=== PATIENT | female | born 1990 | race Two or more races ===

== ENCOUNTER 2024-05-28 12:26 | Inpatient (IN) | payer OTHER ==
[~2024-05-28] VITALS: Ht 160 cm; Wt 70.8 kg
--- NOTE | 2024-05-28 12:33 | NUR ---
PTE ALERTA Y ORIENTADA X3 REFEIRE HABERSE REALIZADO LABORATORIOS LOS CUALES REFLEJAN HEMOGLOBINA EN 6.9. SE MIDEN SV Y SE UBICA.
[2024-05-28] MEDS ORDERED: KETOROLAC TROMETHAMINE 60 MG VIAL IM STA (13:41)
--- NOTE | 2024-05-28 15:02 | NUR ---
PTE ALERTA Y ORIENTADA X3 ES EVALUADA POR EL DR. MARION. RN Ivana GARCIACLIVE MONROY, KALI MUESTRAS DE LAB Y ADMINISTRA MEDICAMENTO MICHELLE ORDEN MEDICA BAJO MEDIDAS ASEPTICAS. SE NOTIFICA SONOGRAMA PENDIENTE.
[2024-05-28 15:57] LABS: CREATININE SERUM 0.51 mg/dL (0.55-1.02); GFR 139.75; POTASSIUM 3.61 mEq/L (3.5-5.1)
[2024-05-28 15:58] VITALS: O2SAT 98
[2024-05-28 16:06] LABS: MEAN CORPUSCULAR HGB CONC 30.3 g/dl (32.0-36.0); PLATELET COUNT 359 K/uL (150-450); RED BLOOD COUNT 4.19 M/uL (4.00-6.00); RED CELL DISTRIBUTION WIDTH 19.5 % (11.5-14.5)
[2024-05-28 16:08] LABS: MEAN CORPUSCULAR HEMOGLOBIN 16.7 pg (27.00-32.0)
[2024-05-28 16:09] LABS: MEAN CELL VOLUME 54.9 fL (80.00-100.00)
[2024-05-28 19:57] LABS: PH,URINE 5.5 (5.0-8.0); URINE APPEARANCE Clear; URINE BILIRRUBIN Negative (NEGATIVE); URINE BLOOD Large; URINE COLOR Yellow; URINE GLUCOSE Negative (NEGATIVE); URINE KETONE Trace (NEGATIVE); URINE LEUKOCYTE Trace; URINE NITRATE Negative; URINE PROTEIN Trace (NEGATIVE)
[2024-05-28 19:58] LABS: URINE BACTERIA 76.8 uL (0.0-1933); URINE EPITHELIAL CELLS 7.7 uL (0.0-38.8); URINE WBC 45.2 uL (0.0-23.2)
[2024-05-28] MEDS ORDERED: ESTROGENS, CONJUGATED 25 MG in DEXTROSE 5 % IN WATER 50 ML IV SCH (20:01)
--- NOTE | 2024-05-28 21:40 | NUR ---
1949- SE ORIENTA A PACIENTE SOBRE PROCESO DE TRANSFUSION DE LESLIE, SE COLECTAN MUESTRAS DE LABORATORIO BAJO MEDIDAS ASEPTICAS PARA 3 UNIDADES DE PRBC, SE LLENA DOCUMENTO DE REQUISION, SE COLECTA MUESTRA DE TIPO Y BERT, SE LLEVAN AL LABORATORIO. SE PROVEE CONSENTIMIENTO PARA TRANSFUSION DE LESLIE,PACIENTE FIRMA DOCUMENTO Y SE ANEJA AL EXPENDIENTE. 2139- INDICA QUE BANCO DE [place]LIE CANCELO REQUISION REALIZADA. SE COLECTAN MUESTRAS DE LABORATORIOS PARA 3 UNIDADES DE PRBC Y SE LLENA REQUISION. SE LLEVAN MUESTRAS AL LABORATORIO Y SE ENTREGAN A .
[2024-05-29 01:00] VITALS: BP 99/64
[2024-05-29 08:42] VITALS: BP 121/80
[2024-05-29] MEDS ORDERED: ACETAMINOPHEN 500 MG GEL..CAP PO PRN (14:30)
[2024-05-29 16:00] VITALS: BP 120/80
[2024-05-29] MEDS ORDERED: ESTROGENS, CONJUGATED 25 MG in DEXTROSE 5 % IN WATER 50 ML IV SCH (17:00)
[2024-05-29] MEDS ORDERED: SIMETHICONE 125 MG CAPSULE PO SCH (17:00)
[2024-05-29 21:22] LABS: HEMATOCRIT 27.7 % (36.0-45.00); MEAN CORPUSCULAR HGB CONC 31.5 g/dl (32.0-36.0); PLATELET COUNT 345 K/uL (150-450); RED BLOOD COUNT 4.47 M/uL (4.00-6.00)
[2024-05-29 21:23] LABS: MEAN CELL VOLUME 61.9 fL (80.00-100.00); MEAN CORPUSCULAR HEMOGLOBIN 19.4 pg (27.00-32.0)
[2024-05-29 21:41] LABS: HEMOGLOBIN 8.7 g/dL (12.0-15.00); RED CELL DISTRIBUTION WIDTH 27.5 % (11.5-14.5)
[2024-05-29] MEDS ORDERED: FERROUS SULFATE 325 MG TABLET.EC PO SCH (22:40)
[2024-05-30 01:11] VITALS: BP 114/70
[2024-05-30 08:00] VITALS: BP 131/89
[2024-05-30 16:00] VITALS: BP 114/75
[2024-05-30 17:31] LABS: HEMATOCRIT 33.5 % (36.0-45.00); HEMOGLOBIN 10.7 g/dL (12.0-15.00); MEAN CORPUSCULAR HGB CONC 31.9 g/dl (32.0-36.0); PLATELET COUNT 370 K/uL (150-450); RED BLOOD COUNT 5.07 M/uL (4.00-6.00)
[2024-05-30 17:33] LABS: MEAN CELL VOLUME 66.1 fL (80.00-100.00); RED CELL DISTRIBUTION WIDTH 31.2 % (11.5-14.5)
[2024-05-31 01:56] VITALS: BP 108/69
[2024-05-31 08:00] VITALS: BP 125/80
[2024-05-31 15:54] VITALS: BP 135/77
[2024-06-01] VITALS: BP 93/59
[2024-06-01 08:00] VITALS: BP 118/76
[2024-06-01 15:05] VITALS: BP 129/82
[2024-06-02 01:17] VITALS: BP 120/77
[2024-06-02 08:33] VITALS: BP 135/86
[2024-06-02] MEDS ORDERED: FERROUS SULFAT325 M1 PO (09:13)
[2024-06-02] MEDS ORDERED: SPRINTEC 28 DA1 EACH PO (09:14)
== END 2024-06-02 10:43 | disposition home or self-care (01) | DRG 761 ==
LOC: ER 12:28 → OB/GYN 21:06
PROVIDERS: General Practice; ADMIT Obstetrics & Gynecology; ATTEND Obstetrics & Gynecology
PROC: BU4CZZZ Ultrasonography of Uterus and Ovaries (ICD-10-PCS; principal; 2024-05-28)
PROC: 30233N1 Transfusion of Nonautologous Red Blood Cells into Peripheral Vein, Percutaneous Approach (ICD-10-PCS; 2024-05-29)
DX: N92.1 Excessive and frequent menstruation with irregular cycle (principal); D64.9 Anemia, unspecified; Z20.822 Contact with and (suspected) exposure to COVID-19; N93.9 Abnormal uterine and vaginal bleeding, unspecified

== ENCOUNTER 2024-08-20 07:00 | Inpatient (IN) | payer OTHER ==
[~2024-08-20] VITALS: Ht 160 cm; Wt 70.8 kg
[~2024-08-20 07:00] MED LIST: FERROUS SULFAT325 M1 PO; SPRINTEC 28 DA1 EACH PO
[2024-08-20 08:32] LABS: HEMATOCRIT 31.8 % (36.0-45.00); HEMOGLOBIN 10.3 g/dL (12.0-15.00); MEAN CELL VOLUME 75.3 fL (80.00-100.00); MEAN CORPUSCULAR HEMOGLOBIN 24.3 pg (27.00-32.0); MEAN CORPUSCULAR HGB CONC 32.3 g/dl (32.0-36.0); PLATELET COUNT 326 K/uL (150-450); RED BLOOD COUNT 4.22 M/uL (4.00-6.00)
[2024-08-20 08:32] LABS: PH,URINE 5.5 (5.0-8.0); URINE APPEARANCE Clear; URINE BILIRRUBIN Negative (NEGATIVE); URINE BLOOD Large; URINE COLOR Yellow; URINE GLUCOSE Negative (NEGATIVE); URINE KETONE Negative (NEGATIVE); URINE LEUKOCYTE Negative; URINE NITRATE Negative; URINE PROTEIN Negative (NEGATIVE); URINE UROBILINOGEN 0.2 E.U./dl
[2024-08-20 08:35] LABS: URINE BACTERIA 671.9 uL (0.0-1933); URINE EPITHELIAL CELLS 8.8 uL (0.0-38.8); URINE RBC 2841.9 uL (0.0-20.8); URINE WBC 11.2 uL (0.0-23.2)
[2024-08-20 08:35] LABS: RED CELL DISTRIBUTION WIDTH 16.3 % (11.5-14.5)
[2024-08-20 08:37] VITALS: BP 122/82
[2024-08-20 08:55] LABS: INR 1.02; PARTIAL THROMBOPLASTIN TIME 24.7 SECONDS (22.0-34.0); PROTHROMBIN TIME 11.1 SECONDS (9.0-11.5)
[2024-08-20 09:13] LABS: ALBUMIN 3.6 gm/dL (3.4-5.0); BILIRUBIN TOTAL 0.52 mg/dL (0.3-1.2); CALCIUM 9.2 mg/dL (8.5-10.1); CREATININE SERUM 0.51 mg/dL (0.55-1.02); GFR 138.88; GLOBULINA 3.4 G/DL (2.4-3.5); POTASSIUM 4.35 mEq/L (3.5-5.1)
[2024-08-28] MEDS ORDERED: METRONIDAZOLE/SODIUM CHLORIDE 500 MG/100 ML PIGGYBACK IV ONE (07:57)
[2024-08-28] MEDS ORDERED: CEFOXITIN SODIUM 2,000 MG VIAL IV ONE (08:01)
[2024-08-28] MEDS ORDERED: POVIDONE-IODINE 118 ML BOTT TOP ONE (08:45)
[2024-08-28] MEDS ORDERED: RINGERS SOLUTION,LACTATED 1,000 ML IV SCH (09:45)
[2024-08-28] MEDS ORDERED: KETOROLAC TROMETHAMINE 30 MG VIAL IV PRN (09:45)
[2024-08-28] MEDS ORDERED: MORPHINE SULFATE 4 MG/ML CARTRIDGE IV PRN (09:45)
[2024-08-28] MEDS ORDERED: SIMETHICONE 125 MG CAPSULE PO SCH (13:00)
[2024-08-28 16:21] LABS: HEMATOCRIT 27.3 % (36.0-45.00); MEAN CELL VOLUME 74.8 fL (80.00-100.00); MEAN CORPUSCULAR HEMOGLOBIN 24.1 pg (27.00-32.0); MEAN CORPUSCULAR HGB CONC 32.3 g/dl (32.0-36.0); PLATELET COUNT 345 K/uL (150-450); RED BLOOD COUNT 3.64 M/uL (4.00-6.00); RED CELL DISTRIBUTION WIDTH 15.5 % (11.5-14.5)
[2024-08-28 16:28] LABS: HEMOGLOBIN 8.8 g/dL (12.0-15.00)
[2024-08-28 16:30] VITALS: BP 99/66; O2SAT 100
[2024-08-28] MEDS ORDERED: FAMOTIDINE/PF 20 MG/2 ML VIAL IV SCH (17:00)
[2024-08-29] MEDS ORDERED: ACETAMINOPHEN WITH CODEINE 1 UDTAB TABLET PO PRN (05:00)
[2024-08-29 08:00] VITALS: BP 121/83; O2SAT 98
[2024-08-29 08:39] LABS: HEMATOCRIT 25.2 % (36.0-45.00); MEAN CELL VOLUME 74.1 fL (80.00-100.00); MEAN CORPUSCULAR HGB CONC 32.6 g/dl (32.0-36.0); PLATELET COUNT 285 K/uL (150-450); RED BLOOD COUNT 3.41 M/uL (4.00-6.00); RED CELL DISTRIBUTION WIDTH 15.4 % (11.5-14.5)
[2024-08-29 08:41] LABS: HEMOGLOBIN 8.2 g/dL (12.0-15.00)
[2024-08-29] MEDS ORDERED: ACETAMINOPHEN-1 EAC2 PO (09:29)
[2024-08-29] MEDS ORDERED: NAPR500T14 PO (09:29)
[2024-08-29] MEDS ORDERED: MAXFE CAPLET1 EAC1 PO (09:29)
[2024-08-29] MEDS ORDERED: PEPCID AC20 MG PO (09:30)
[2024-08-30] MEDS ORDERED: NAPROXEN 500 MG TABLET PO PRN (09:00)
== END 2024-08-29 10:48 | disposition home or self-care (01) | DRG 743 ==
LOC: O/R 08-28 05:37 → SURH 08-28 07:00
PROVIDERS: ADMIT Obstetrics & Gynecology; ATTEND Obstetrics & Gynecology
PROC: 0UT7FZZ Resection of Bilateral Fallopian Tubes, Via Natural or Artificial Opening With Percutaneous Endoscopic Assistance (ICD-10-PCS; 2024-08-28)
PROC: 0TJB8ZZ Inspection of Bladder, Via Natural or Artificial Opening Endoscopic (ICD-10-PCS; 2024-08-28)
PROC: 0UT9FZZ Resection of Uterus, Via Natural or Artificial Opening With Percutaneous Endoscopic Assistance (ICD-10-PCS; principal; 2024-08-28 10:30)
DX: D25.1 Intramural leiomyoma of uterus (principal); N80.03 Adenomyosis of the uterus; N92.0 Excessive and frequent menstruation with regular cycle; R10.2 Pelvic and perineal pain; N81.11 Cystocele, midline